=== PATIENT | female | born 1950 | race African-American/Black ===

== ENCOUNTER 2017-12-18 09:53 | Emergency (ER) | payer MEDICARE ==
[~2017-12-18] VITALS: Ht 162.6 cm; Wt 95.3 kg
[2017-12-18 09:53] VITALS: BP 150/90
[2017-12-18] MEDS ORDERED: KETOROLAC TROMETHAMINE INJ 30 MG/ML VIAL IM ONE (10:30)
[2017-12-18] MEDS ORDERED: ACETAMINOPHEN ES 500 MG TABLET PO ONE (10:30)
[2017-12-18] MEDS ORDERED: KETOROLAC TROMETHAMINE 15 MG/ML VIAL ONE (10:35)
[2017-12-18] MEDS ORDERED: ACETAMINOPHEN ES 500 MG TABLET ONE (10:36)
== END 2017-12-18 11:36 | disposition home or self-care (01) ==
LOC: ER 10:02
DX: M10.072 Idiopathic gout, left ankle and foot (principal); I10 Essential (primary) hypertension; Z88.8 Allergy status to other drugs, medicaments and biological substances
CPT/HCPCS: 73630; 96372; 99284; A4606; J1885; Z7610